=== PATIENT | female | born 1985 | race Two or more races ===

== ENCOUNTER 2016-07-18 10:53 | Emergency (ER) | payer MEDICAID ==
--- NOTE | 2016-07-18 12:05 | RAD ---
Exam: 4 view right knee COMPARISON: None INDICATION: Right knee pain, no injury, pain when standing. Pain medial, proximal lower leg the joint line of knee. Finding: AP, lateral and bilateral AP oblique views of the right knee were obtained. There is no joint effusion. Alignment is normal. No fracture, periosteal reaction or other osseous abnormality is identified. Joint spaces maintained. IMPRESSION: Negative right knee.
== END 2016-07-18 12:41 | disposition home or self-care (01) ==
LOC: ED 10:53
DX: S83.421A Sprain of lateral collateral ligament of right knee, initial encounter (principal); X58.XXXA Exposure to other specified factors, initial encounter; Y92.9 Unspecified place or not applicable